=== PATIENT | female | born 2000 | race Two or more races ===

== ENCOUNTER 2023-07-03 11:45 | Observation (INO) | payer MEDICAID ==
[~2023-07-03] VITALS: Ht 154.9 cm; Wt 93.9 kg
[2023-07-03] MEDS ORDERED: PREN-96 PO (13:34)
== END 2023-07-03 13:40 | disposition home or self-care (01) ==
LOC: UNDOADMOB 11:45 → LDRP 11:45
PROVIDERS: ADMIT Obstetrics & Gynecology; ATTEND Obstetrics & Gynecology
DX: O24.419 Gestational diabetes mellitus in pregnancy, unspecified control (principal); Z3A.39 39 weeks gestation of pregnancy
CPT/HCPCS: 59025; 76805; 76818; 81002; 82948; 82962; 94760; G0378

== ENCOUNTER 2023-07-10 09:04 | Observation (INO) | payer MEDICAID ==
[~2023-07-10 09:04] MED LIST: PREN-96 PO
== END 2023-07-10 13:32 | disposition home or self-care (01) ==
LOC: LDRP 10:57
PROVIDERS: ADMIT Obstetrics & Gynecology; ATTEND Obstetrics & Gynecology
DX: O24.419 Gestational diabetes mellitus in pregnancy, unspecified control (principal); Z3A.40 40 weeks gestation of pregnancy
CPT/HCPCS: 59025; 76818; 81002; 82948; 82962; 94760; G0378

== ENCOUNTER 2023-07-11 17:58 | Inpatient (IN) | payer MEDICAID ==
[~2023-07-11] VITALS: Ht 154.9 cm; Wt 94.8 kg
[2023-07-11] MEDS ORDERED: LACT. RINGERS/OXYTOCIN 20UNITS 500 ML IV ONE ×2 (19:00→19:30)
[2023-07-11] MEDS ORDERED: DERMOPLAST 60ML BOTTLE TOP PRN (19:00)
[2023-07-11] MEDS ORDERED: LACTATED RINGER'S 1,000 ML IV SCH (19:00)
[2023-07-11] MEDS ORDERED: LACT. RINGERS/OXYTOCIN 20UNITS 1,000 ML IV SCH (19:00)
[2023-07-11] MEDS ORDERED: LIDOCAINE 2%HCL (LOCAL ANESTH.) INJ 20ML MDV IJ PRN (19:00)
[2023-07-11] MEDS ORDERED: TERBUTALINE SULFATE 1 MG/ML 1ML VIAL SC PRN (19:00)
[2023-07-11] MEDS ORDERED: WITCH HAZEL-GLYCERIN PAD TOP PRN (19:00)
[2023-07-11] MEDS ORDERED: PHISODERM TOP SOLN 240ML BTL TOP PRN (19:00)
[2023-07-11] MEDS ORDERED: PROMETHAZINE HCL 25 MG/ML 1ML IV PRN (19:00)
[2023-07-11] MEDS ORDERED: BUTORPHANOL TARTRATE 2 MG/1 ML VIAL IV PRN ×2 (19:00)
[2023-07-11] MEDS ORDERED: miSOPROStol 100 mcg TAB ONE (19:20)
[2023-07-11] MEDS ORDERED: METHYLERGONOVINE MALEATE 0.2 MG/ML AMP IM ONE (19:20)
[2023-07-11] MEDS ORDERED: IBUPROFEN 600 MG TAB PO PRN (20:00)
[2023-07-11] MEDS ORDERED: ACETAMINOPHEN 325 MG TAB PO PRN (20:00)
[2023-07-11] MEDS ORDERED: DOCUSATE SOD 100 MG CAP PO PRN (20:00)
[2023-07-11 20:43] LABS: Eosinophils # (auto) 0.1 10 ^3/uL (0-0.8); Eosinophils % (auto) 1.2 % (0.0-7.0); Hemoglobin 10.4 g/dL (12.2-16.2); Monocytes # (auto) 0.6 10 ^3/uL (0-1.3); White Blood Cell 10.3 10^3/uL (4.4-10.8)
[2023-07-11 20:44] LABS: Basophils # (auto) 0 10 ^3/uL (0-0.2); Basophils % (auto) 0.2 % (0.0-2.0); Hematocrit 32.2 % (36.0-46.0); Lymphocytes # (auto) 2.4 10 ^3/uL (0.4-5.4); Mean Corpuscular Hemoglobin 25.6 pg (28.0-32.0); Mean Corpuscular Hgb Conc. 32.3 g/dL (32.0-36.0); Mean Corpuscular Volume 79.4 fL (80.0-100.0); Neutrophils # (auto) 7.2 10 ^3/uL (1.6-8.6); Neutrophils % (auto) 69.6 % (37.0-80.0); Nucleated Red Blood Cells % 0.1 %; Red Blood Cells 4.06 10^6/uL (4.0-5.20); Red Cell Distribution Width 16.2 % (11.8-14.3)
[2023-07-11 20:58] LABS: Albumin 3.7 g/dL (3.2-4.8); Alkaline Phosphatase 184 U/L (46-116); Anion Gap 11 (5-15); Aspartate Aminotransferase 14 U/L (13-40); BUN/Creatinine Ratio 17.7 (10.0-20.0); Bilirubin, Total 0.2 mg/dL (0.2-1.0); Blood Urea Nitrogen 11 mg/dL (9-23); Calcium 9.3 mg/dL (8.5-10.1); Carbon Dioxide 21 mmol/L (20-30); Chloride 106 mmol/L (98-107); Glucose 97 mg/dL (74-106); Sodium 138 mmol/L (136-145); Total Protein 6.3 g/dL (5.7-8.2)
[2023-07-11 21:00] LABS: INR 0.93 (0.9-1.15); Prothrombin Time 9.8 sec (9.3-11.8)
[2023-07-11 21:06] LABS: Alanine Aminotransferase < 9 U/L (7-40)
[2023-07-11 21:08] LABS: Urine Bacteria NONE SEEN /hpf (None Seen); Urine Blood Negative /uL (Negative); Urine Clarity Clear (Clear); Urine Color Yellow (Yellow); Urine Mucus FEW (None Seen); Urine Protein, UAD TRACE (Negative); Urine Specific Gravity 1.028 (1.001-1.035); Urine WBC 7 /hpf (0 - 5)
[2023-07-11 21:16] LABS: Amphetamine Screen, Urine Neg (NEGATIVE)
[2023-07-11 21:17] LABS: Barbiturate Scree,Urine Neg (NEGATIVE); Benzodiazephine Screen, Urine Neg (NEGATIVE); Cannabinoid Screen, Urine Neg (NEGATIVE); Cocaine Screen, Urine Neg (NEGATIVE); Opiate Scree,Urine Neg (NEGATIVE); Phencyclidine Screen, Urine Neg (NEGATIVE)
[2023-07-11 23:00] VITALS: BP 113/70; PULSE 72; RESP 18; TEMP 98.8; O2SAT 98
[2023-07-12] MEDS ORDERED: MEASLES, MUMPS & RUBELLA VAC(MMRII) 0.5ML SC ONE (00:30)
[2023-07-12 04:00] VITALS: BP 111/62; PULSE 66; RESP 18; TEMP 98.3; O2SAT 97
[2023-07-12] MEDS ORDERED: IBU600T PO (05:53)
[2023-07-12] MEDS ORDERED: DOCU-265 PO (05:53)
[2023-07-12] MEDS ORDERED: FERR30CA PO (05:53)
[2023-07-12] MEDS ORDERED: PREN-96 PO (05:53)
[2023-07-12 07:01] LABS: Hematocrit 29.5 % (36.0-46.0); Hemoglobin 9.5 g/dL (12.2-16.2); Mean Corpuscular Hemoglobin 25.5 pg (28.0-32.0); Monocytes # (auto) 0.7 10 ^3/uL (0-1.3); Neutrophils # (auto) 8.1 10 ^3/uL (1.6-8.6); Red Blood Cells 3.73 10^6/uL (4.0-5.20)
[2023-07-12 07:03] LABS: Basophils # (auto) 0 10 ^3/uL (0-0.2); Basophils % (auto) 0.3 % (0.0-2.0); Eosinophils # (auto) 0.1 10 ^3/uL (0-0.8); Eosinophils % (auto) 1.2 % (0.0-7.0); Lymphocytes % (auto) 25.4 % (10.0-50.0); Mean Corpuscular Hgb Conc. 32.3 g/dL (32.0-36.0); Mean Corpuscular Volume 78.9 fL (80.0-100.0); Monocytes % (auto) 5.5 % (0.0-12.0); Neutrophils % (auto) 67.6 % (37.0-80.0); Nucleated Red Blood Cells % 0.1 %; Red Cell Distribution Width 16.1 % (11.8-14.3)
[2023-07-12 07:14] LABS: Free T3 2.51 pg/mL (2.3-4.2)
[2023-07-12 07:15] LABS: Free T4 (Free Thyroxine) 0.78 ng/dL (0.89-1.76)
[2023-07-12 07:30] VITALS: BP 120/75; PULSE 76; RESP 16; TEMP 98.8; O2SAT 97
[2023-07-12 11:02] VITALS: BP 123/74; PULSE 71; RESP 16; TEMP 98.4; O2SAT 97
[2023-07-12 18:55] VITALS: BP 122/81; PULSE 75; RESP 17; TEMP 99; O2SAT 97
[2023-07-13 07:06] LABS: RPR Non Reactive (Non Reactive)
[2023-07-14 04:06] LABS: Chlamydia Trachomatis, NAA Negative (Negative); Neisseria gonorrhoeae, NAA Negative (Negative)
[2023-07-15 20:06] LABS: Treponema pallidum Ab (FTA-Ab) Non Reactive (Non Reactive)
== END 2023-07-12 21:38 | disposition home or self-care (01) | DRG 560 ==
LOC: LDRP 17:58 → OBSVTOIN 18:45 → LDRP 18:46
PROVIDERS: ADMIT Obstetrics & Gynecology; ATTEND Obstetrics & Gynecology
PROC: 10E0XZZ Delivery of Products of Conception, External Approach (ICD-10-PCS; principal; 2023-07-11)
DX: O48.0 Post-term pregnancy (principal); Z37.0 Single live birth; O24.429 Gestational diabetes mellitus in childbirth, unspecified control; D50.9 Iron deficiency anemia, unspecified; O99.02 Anemia complicating childbirth; Z3A.40 40 weeks gestation of pregnancy
CPT/HCPCS: 36415; 59025; 59409; 80053; 80307; 81001; 82962; 84439; 84443; 84481; 85025; 85610; 85730; 86592; 86850; 86900; 86901; 94760; 96360; 96361; 96365; 96366; G0378; J2590